=== PATIENT | female | born 1955 | race Caucasian/White ===

== ENCOUNTER 2017-03-12 10:51 | Inpatient (IN) | payer OTHER ==
[~2017-03-12] VITALS: Ht 165.1 cm; Wt 186.0 kg
--- NOTE | ~2017-03-12 | ECH ---
Transthoracic Echocardiography Report (TTE) Demographics Patient Name PIERRE PEREZ Date of Study 03/12/2017 Patient Number [id number] Visit Number [id number] Date of 1955 Room Number 527 Accession Number [id number] Gender Female Age 62 year(s) Referring Lauren Chau MD Calculation Clerk Trixie Crews [facility] Physician Physician Interpreting Willie Cervantes [employer] Technician Physician Supervising Ordering Physician Lauren Chau MD, MD/P Nurse Stress House Painting Instructor Conclusions Summary Technically difficult exam to perform. LVEF 55-60% Moderate to severe left ventricular hypertrophy. Diastolic assessment reveals Grade I diastolic dysfunction. The left atrium is mildly dilated by LA volume index measurement. The ascending aorta appears mildly dilated. The maximum diameter measures 3.9 cm. Procedure Type of Study TTE procedure:Echo Complete SF. Procedure Date Date: 03/12/2017 Start: 03:07 PM Technical Quality: Fair due to body habitus. Indications:Edema. Appropriate Use Criteria: 9 Height: 65 inches Weight: 409 pounds BSA: 2.68 m Rhythm: Within normal limits HR: 65 bpm BP: 111/70 mmHg M-Mode/2D Measurements LV Diastolic Dimension: 4.66 cm LV Systolic Dimension: 2.72 cm LV Septum Diastolic: 1.83 cm LV PW Diastolic: 1.55 cm AO Root Dimension: 2.77 cm Cardiac Output: 5.58 l/min LA Dimension: 4.15 cm Cardiac Index: 2.08 l/min*m RV Diastolic Dimension: 3.6 cm LA volume index: 36 ml/m LVOT: 1.91 cm LVOT VTI: 30 cm LV Stroke volume: 85.91 ml LV Stroke volume index: 32.06 ml/m Doppler Measurements AV Peak Velocity: 1.52 m/s MV Peak E-Wave: 0.7 m/s AV Peak Gradient: 9.24 mmHg MV Peak A-Wave: 1 m/s AV Mean Gradient: 5.22 mmHg MV E/A Ratio: 0.7 LVOT Peak Velocity: 1.29 m/s AV Area (Continuity):2.59 cm PV Peak Velocity: 2.16 m/s PV Peak Gradient: 18.72 mmHg Findings Left Ventricle The left ventricle is normal in size . Moderate to severe left ventricular hypertrophy. Diastolic assessment reveals Grade I diastolic dysfunction. Right Ventricle Right ventricle not well visualized. Left Atrium The left atrium is mildly dilated by LA volume index measurement. Right Atrium Right atrium not well visualized. Mitral Valve Normal mitral valve structure and function. Aortic Valve The aortic valve was not well imaged. Tricuspid Valve Normal tricuspid valve structure and function. Pulmonic Valve The pulmonic valve is not well visualized. Pericardial Effusion No evidence of pericardial effusion. Miscellaneous The ascending aorta appears mildly dilated. The maximum diameter measures 3.9 cm. Pleural Effusion No evidence of pleural effusion. Contractility Score LV regional wall motion:(0-Non visualized 1-Normal 2-Hypokinesis 3-Akinesis 4-Dyskinesis 5-Aneurysm) Signature
--- NOTE | 2017-03-23 08:10 | HP ---
ADMIT: 03/12/2017 RM/LOC: 527 [facility] MR#: [id number] [address] [address] PEREZPIERRE Jacob [address] [address] History and Physical SEX: F AGE: 62 : 1955 DATE OF SERVICE: 03/17/2017 REASON FOR HOSPITALIZATION: Lymphedema cellulitis. HISTORY OF PRESENT ILLNESS: A 62-year-old female patient with severe obesity and lymphedema, developed cellulitis. We are admitting her for diuresis and IV antibiotic therapy. PAST MEDICAL HISTORY: She has an extensive past medical history includin. Severe obesity. 2. Restrictive and obstructive lung disease. 3. Hypothyroidism. 4. Chronic oxygen therapy. 5. DJD. 6. Chronic pain. 7. Immobility. 8. Fibromyalgia. 9. Hyperglycemia. 10.Hyperlipidemia. 11.Metabolic syndrome. SOCIAL HISTORY: She has been struggling to live at home with her disabled daughter. She admits that she has been very immobilized and pretty much spending most of her time and days in a bed in her bedroom watching TV. She does not smoke. She is retired/disabled. FAMILY HISTORY: Noncontributory. MEDICATIONS: At the time of admission included: 1. Amitriptyline. 2. Lortab. 3. Levothyroxine. 4. Metoprolol. 5. Clonidine. 6. Lisinopril. 7. Ventolin. 8. Multivitamin. 9. Aspirin. REVIEW OF SYSTEMS: Immobility. Bilateral severe knee pain which impairs her ability to walk. She has back pain. Edema. Cellulitis as described. No nausea, vomiting, diarrhea, or bleeding. PHYSICAL EXAMINATION: LUNGS: Distant, clear. ADMIT: 03/12/2017 RM/LOC: 527 [facility] MR#: [id number] [address] [address] PIERRE PEREZ [address] [place] [address] History and Physical SEX: F AGE: 62 : 1955 HEART: Regular. ABDOMEN: Round, obese, soft. EXTREMITIES: She has lymphedema and erythema of lower extremities. LABORATORY DATA: TSH of 5.2. IMPRESSION: 1. Lymphedema cellulitis. 2. Severe obesity with comorbidities. PLAN: Admit. IV antibiotic therapy. Diuresis. Venous ultrasound. Echocardiogram. Bariatric surgical evaluation. Christiano Aguilar DO/ christopher JOB #: [id number] CC: Christiano Aguilar, Attending Physician Christiano Aguilar, Family Physician
[2017-04-04] MEDS ORDERED: ELAVIL-DPS100 MG PO (10:59)
[2017-04-04] MEDS ORDERED: NORCO 7.5-3251 EACH PO (10:59)
[2017-04-04] MEDS ORDERED: SYNTHROID112 MCG PO (10:59)
[2017-04-04] MEDS ORDERED: LOPRESSOR DPS100 MG PO (11:00)
[2017-04-04] MEDS ORDERED: ZESTRIL DPS20 MG PO (11:00)
[2017-04-04] MEDS ORDERED: PROVENTIL HFA6.7 GM IH (11:00)
[2017-04-04] MEDS ORDERED: CATAPRES-DPS0.2 MG PO (11:00)
[2017-04-04] MEDS ORDERED: THERA1 EACH PO (11:00)
[2017-04-04] MEDS ORDERED: LASIX DPS20 MG PO (11:01)
[2017-04-04] MEDS ORDERED: ECOTRIN81 MG PO (11:01)
[2017-04-04] MEDS ORDERED: KLOR-CON M2020 ME1 PO (11:01)
--- NOTE | 2017-05-04 08:35 | DS ---
ADMIT: 03/12/2017 RM/LOC: 527 [facility] MR#: [id number] [address] [address] CHRIS PIERRE Jacob [address] [address] General Discharge Summary SEX: F AGE: 62 : 1955 ADMISSION DATE: 03/12/2017 DISCHARGE DATE: 03/17/2017 REASON FOR HOSPITALIZATION: Cellulitis. HISTORY OF PRESENT ILLNESS: The patient came in with lymphedema and cellulitis. She is 62 years of age and has severe obesity with chronic hypoventilation and hypoxia. Her exam showed lymphedema and erythema of the lower extremity, left greater than right. HOSPITAL COURSE: She was admitted to the hospital, was started on Zosyn, underwent venous ultrasound of the legs, echocardiogram, bilateral x-rays of the knees, and IV diuresis. We started EdemaWear and had Nutrition talk with her. We asked Dr. Machado to see the patient to consider bariatric intervention. He recommended that she follow up with him on an outpatient basis for further follow through. Her echo showed EF of 55% to 60% and moderate to severe LVH. Her x-rays knees, showed severe bilateral knee DJD, and she had no clot on her venous ultrasound. The patient received an extended course of IV antibiotic in the hospital and then was transitioned to senior living unit for further physical therapy, antibiotic management, leg elevation, and enforcement of EdemaWear. I also asked Orthopedics to see the patient to consider injecting her knees. Dr. Mauricio saw the patient and recommended that we wait until her cellulitis improve before injecting her. On 03/17, we transferred her to senior living for physical therapy, occupational therapy. She was to continue oral Augmentin 875 mg b.i.d. and receive outpatient followup Dr. Machado and Dr. Maurciio. She is to return to see me in 10 to 14 days. She is also developing a shingles rash on her buttock, and I put her on a 7-day course of Valtrex. FINAL DIAGNOSES: 1. Cellulitis. 2. Lymphedema. 3. Hypertension. 4. Hypokalemia. 5. Chronic hypoxemia. 6. Severe obesity. 7. Shingles. Christiano Aguilar DO/ christopher JOB #: [id number] CC: Christiano Aguilar DO, Attending Physician Christiano Aguilar DO, Family Physician
[2017-05-22] MEDS ORDERED: ELAVIL-DPS100 MG PO (20:20)
[2017-05-22] MEDS ORDERED: NORCO 5-325 TA1 EACH PO (20:21)
[2017-05-22] MEDS ORDERED: SYNTHROID DPS0.2 MG PO (20:23)
[2017-05-22] MEDS ORDERED: LOPRESSOR DPS100 MG PO (20:23)
[2017-05-22] MEDS ORDERED: ZESTRIL DPS20 MG PO (20:23)
[2017-05-22] MEDS ORDERED: CATAPRES-DPS0.2 MG PO (20:23)
[2017-05-22] MEDS ORDERED: THERA1 EACH PO (20:24)
[2017-05-22] MEDS ORDERED: ASA CHILDREN'S81 MG PO (20:24)
[2017-05-22] MEDS ORDERED: KEFLEX-DPS500 MG PO (20:24)
[2017-05-22] MEDS ORDERED: KLOR-CON M2020 ME1 PO (20:24)
[2017-05-22] MEDS ORDERED: LASIX DPS20 MG PO (20:25)
== END 2017-03-17 11:19 | DRG 603 ==
LOC: 5MS 10:51
PROVIDERS: ADMIT Internal Medicine
DX: L03.116 Cellulitis of left lower limb (principal); E88.81 Metabolic syndrome and other insulin resistance; Z99.81 Dependence on supplemental oxygen; Z68.44 Body mass index [BMI] 60.0-69.9, adult; B02.9 Zoster without complications; I89.0 Lymphedema, not elsewhere classified; J44.9 Chronic obstructive pulmonary disease, unspecified; E03.9 Hypothyroidism, unspecified; M17.0 Bilateral primary osteoarthritis of knee; E66.01 Morbid (severe) obesity due to excess calories; R09.02 Hypoxemia; G89.29 Other chronic pain; M79.7 Fibromyalgia; E78.5 Hyperlipidemia, unspecified; R73.9 Hyperglycemia, unspecified; Z79.82 Long term (current) use of aspirin; I10 Essential (primary) hypertension; E87.6 Hypokalemia

== ENCOUNTER 2017-04-20 16:22 | Inpatient (IN) | payer OTHER ==
[~2017-04-20] VITALS: Ht 165.1 cm; Wt 185.9 kg
[~2017-04-20 16:22] MED LIST: CATAPRES-DPS0.2 MG PO; ECOTRIN81 MG PO; ELAVIL-DPS100 MG PO; KLOR-CON M2020 ME1 PO; LASIX DPS20 MG PO; LOPRESSOR DPS100 MG PO; NORCO 7.5-3251 EACH PO; PROVENTIL HFA6.7 GM IH; SYNTHROID112 MCG PO; THERA1 EACH PO; ZESTRIL DPS20 MG PO
--- NOTE | 2017-04-24 19:13 | ER ---
ADMIT: 04/20/2017 RM/LOC: 528 [facility] MR#: [id number] [address] [address] PEREZPIERRE Jacob [address] [address] Emergency Room Report SEX: F AGE: 62 : 1955 DATE: 04/20/2017 HISTORY OF PRESENT ILLNESS: The patient is a 62-year-old female with past medical history of hypertension, lupus, DJD, fibromyalgia, lymphedema, and recent left lower extremity cellulitis, came to the ER with chief complaint of left lower extremity, mostly in the thighs and legs swelling, and mild pain and mild tenderness. The patient states she was febrile at home on Thursday, 103 degrees, and took Tylenol before coming to the hospital. The patient states the symptoms are very similar to the previous admission that she was admitted with cellulitis. The patient denies any headaches, neck pain, neck stiffness, chest pain, or new shortness of breath, and said that the shortness of breath is at her baseline. The patient denies any abdominal pain. PHYSICAL EXAMINATION: GENERAL: The patient was morbidly obese. Sitting on the bed, in no obvious distress. VITAL SIGNS: The patient was afebrile in the ER with temperature of 98.2, with respiratory rate of 24, heart rate of 84, and blood pressure of 146/74. HEAD AND NECK: Normal. CHEST: Had very mild wheezing without any crackles. ABDOMEN: Soft. HEART: Normal heart sounds. EXTREMITIES: In the bilateral lower extremities, the patient had chronic lymphedema and swelling. There is induration of the skin in the left anterior thigh extending to the left leg and also mild warmth and erythema over the area. The patient can do range of motion in all the joints without difficulty passively and actively. The rest of the physical examination is noncontributory. LABORATORY AND X-RAY DATA: The patient had white blood cell of 12.6 with left shift with absolute neutrophil count of 10,000, hemoglobin was 12 with platelets of 214,000. Sodium was 4 with potassium of 4.0. Glucose level is 119. INR was 1.0. Lactic acid was 1.7 and ESR was elevated to 71. Troponin I was negative. Urine was positive for 12 white blood cells and 3 red blood cells. ASSESSMENT AND PLAN: With the initial diagnosis of left lower extremity cellulitis, the patient was started on vancomycin in the ER. Blood cultures were sent, and the patient was admitted for further followups and treatments of left lower extremity cellulitis. Mark Last MD/ christopher JOB #: [id number] CC: Christiano Aguilar DO, Attending Physician Christiano Aguilar DO, Family Physician
--- NOTE | 2017-05-04 08:35 | HP ---
ADMIT: 04/20/2017 RM/LOC: 528 [facility] MR#: [id number] [facility]#: [id number] [address] [address] PIERRE PEREZ [address] [address] History and Physical SEX: F AGE: 62 : 1955 DATE OF SERVICE: REASON FOR HOSPITALIZATION: Cellulitis, lymphedema, fever, and urinary tract infection. HISTORY OF PRESENT ILLNESS: This is a 62-year-old female patient, who was admitted recently to the hospital and received antibiotic therapy and diuretic therapy for cellulitis and lymphedema. After her extended course of IV antibiotic here in the hospital, she was transitioned to skilled care, where she received ongoing antibiotic and lymphedema management. She was doing well until yesterday when she called to say that she is having pain in her lower extremity. She then came to the emergency room, where she was noted to have obvious recurrence of her cellulitis and is now being admitted for further management. She does have a history of severe obesity, restrictive and obstructive lung disease, chronic oxygen therapy, obesity hypoventilation syndrome, hypothyroidism, DJD, chronic pain, immobility, fibromyalgia, hyperglycemia, hyperlipidemia, and metabolic syndrome. About 2 weeks ago, she received a knee joint injection with steroid. SOCIAL HISTORY: She is struggling to live at home. She is back in the hospital after only a very short time back in her apartment, where she lives with her daughter. She does not smoke or drink. She is retired and disabled. FAMILY HISTORY: Noncontributory. MEDICATIONS: Her medications include: 1. Amitriptyline. 2. Hydrocodone. 3. Levothyroxine. 4. Metoprolol. 5. Clonidine. 6. Lisinopril. 7. Ventolin. 8. Multivitamin. 9. Aspirin. 10.Potassium. 11.Lasix. 12.Nystatin. For specifics of dosing, please refer to admission orders. REVIEW OF SYSTEMS: She denies any real shortness of breath, nausea, vomiting, diarrhea, or bleeding. She has had the swelling pain and discomfort in her left lower extremity. PHYSICAL EXAMINATION: GENERAL AND VITAL SIGNS: She is pleasant, afebrile currently, but reports temperature up to 103 prior to admission. EXTREMITIES: She has erythema from above the knee down to the ankle with chronic lymphedema below the knee. ADMIT: 04/20/2017 RM/LOC: 528 [facility] MR#: [id number] [address] [address] PIERRE PEREZ [address] [place] [address] History and Physical SEX: F AGE: 62 : 1955 LABORATORY DATA: Her white count is currently 12.4, hemoglobin 11.6. Urinalysis; 2+ leukocytes. IMAGING: Chest x-ray, mild pulmonary vascular congestion. IMPRESSION: 1. Lymphedema. 2. Cellulitis. 3. Urinary tract infection. PLAN: Admit. IV antibiotic therapy. IV Lasix therapy. Leg elevation and close observation. Christiano Aguilar DO/ christopher JOB #: [id number] CC: Christiano Aguilar, Attending Physician Christiano Aguilar, Family Physician
[2017-05-22] MEDS ORDERED: ELAVIL-DPS100 MG PO (20:20)
[2017-05-22] MEDS ORDERED: NORCO 5-325 TA1 EACH PO (20:21)
[2017-05-22] MEDS ORDERED: ZESTRIL DPS20 MG PO (20:23)
[2017-05-22] MEDS ORDERED: LOPRESSOR DPS100 MG PO (20:23)
[2017-05-22] MEDS ORDERED: CATAPRES-DPS0.2 MG PO (20:23)
[2017-05-22] MEDS ORDERED: SYNTHROID DPS0.2 MG PO (20:23)
[2017-05-22] MEDS ORDERED: KLOR-CON M2020 ME1 PO (20:24)
[2017-05-22] MEDS ORDERED: KEFLEX-DPS500 MG PO (20:24)
[2017-05-22] MEDS ORDERED: ASA CHILDREN'S81 MG PO (20:24)
[2017-05-22] MEDS ORDERED: THERA1 EACH PO (20:24)
[2017-05-22] MEDS ORDERED: LASIX DPS20 MG PO (20:25)
--- NOTE | 2017-06-15 08:14 | DS ---
ADMIT: 04/20/2017 RM/LOC: 528 [facility] MR#: [id number] [facility]#: [id number] [address] [address] HANK PEREZ [address] [address] General Discharge Summary SEX: F AGE: 62 : 1955 ADMISSION DATE: 04/20/2017 DISCHARGE DATE: 04/27/2017 REASON FOR HOSPITALIZATION: Chronic severe lymphedema with lower extremity cellulitis and fever. HISTORY OF PRESENT ILLNESS: The patient is a 62-year-old, severely obese, female patient with very poor mobility, who has recurrent left lower extremity cellulitis and fever. She suffers from chronic lymphedema, severe obesity, obesity hypoventilation syndrome, hypertension, and hypothyroidism. HOSPITAL COURSE: She was admitted to the hospital. Her legs were elevated. She was started on IV Lasix, IV antibiotic therapy, physical therapy, and occupational therapy were involved with her care and management. She was given IV vancomycin and Merrem, and had a slow diuresis and improvement in the erythema and cellulitis of her lower extremities. Venous ultrasound did not show evidence of deep vein thrombosis. On 04/27, we changed her Lasix to oral therapy, and prepared her for transfer to halfway unit for ongoing management. MEDICATIONS: She was transferred to halfway unit on; 1. Aspirin 81 mg p.o. daily. 2. Catapres 0.2 mg p.o. daily. 3. Elavil 100 mg p.o. at bedtime. 4. Klor-Con 20 mEq p.o. t.i.d. 5. Lopressor 100 mg p.o. b.i.d. 6. Nystatin suspension oral q.i.d. 7. Synthroid 0.2 mg p.o. daily in addition to 0.25 mg p.o. daily. 8. Therapeutic multivitamin one daily. 9. Zestril 20 mg p.o. daily. 10.Subcu Lovenox, deep vein thrombosis prophylaxis. 11.Mycostatin powder topical. 12.Lasix 80 mg p.o. b.i.d. 13.She was to continue vancomycin and Merrem therapy. FINAL DIAGNOSES: 1. Severe obesity. 2. Chronic lymph edema with cellulitis. 3. Stasis dermatitis. Christiano Aguilar DO/ christopher JOB #: [id number] CC: Christiano Aguilra DO, Attending Physician Christiano Aguilar DO, Family Physician
== END 2017-04-27 11:07 | DRG 603 ==
LOC: ER 16:22 → 5MS 19:44
PROVIDERS: ADMIT Internal Medicine
DX: L03.116 Cellulitis of left lower limb (principal); Z99.81 Dependence on supplemental oxygen; E66.2 Morbid (severe) obesity with alveolar hypoventilation; N39.0 Urinary tract infection, site not specified; Z68.44 Body mass index [BMI] 60.0-69.9, adult; I89.0 Lymphedema, not elsewhere classified; I10 Essential (primary) hypertension; M19.90 Unspecified osteoarthritis, unspecified site; M79.7 Fibromyalgia; J44.9 Chronic obstructive pulmonary disease, unspecified; E03.9 Hypothyroidism, unspecified; E78.5 Hyperlipidemia, unspecified; Z79.82 Long term (current) use of aspirin